=== PATIENT | female | born 1950 | race Caucasian/White ===

== ENCOUNTER 2016-07-27 08:30 | Outpatient (CLI) | payer MEDICARE, OTHER | END 2016-07-27 08:31 | disposition home or self-care (01) | DX: Z12.31 Encounter for screening mammogram for malignant neoplasm of breast (principal); Z80.3 Family history of malignant neoplasm of breast ==

== ENCOUNTER 2017-08-10 10:36 | Outpatient (CLI) | payer MEDICARE, OTHER ==
--- NOTE | 2017-08-12 15:34 | Mammography Report ---
BILATERAL SCREENING MAMMOGRAM: 08/10/2017 COMPARISON: Mammogram 07/27/2016. INDICATION: Screening. TECHNIQUE: Bilateral CC and MLO breast views. FINDINGS There are scattered fibroglandular densities. No dominant mass, architectural distortion, or concerning cluster of microcalcifications is seen. IMPRESSION 1. BI-RADS CATEGORY 1, NEGATIVE. 2. RECOMMEND ANNUAL SCREENING MAMMOGRAM. STANDARD QUALIFYING STATEMENTS 1. This examination was reviewed with the aid of Computed-Aided Detection (CAD) . 2. A negative or benign imaging report should not delay biopsy if clinically suspicious findings are present. Consider surgical consultation if warranted. More than 5 % of cancers are not identified by imaging. 3. Dense breasts may obscure an underlying neoplasm. TD: 08/11/2017 17:38 JOSE
== END 2017-08-10 10:37 | disposition home or self-care (01) ==
LOC: DI 10:36
PROVIDERS: ATTEND Nurse Practitioner Women's Health
DX: Z12.31 Encounter for screening mammogram for malignant neoplasm of breast (principal)
CPT/HCPCS: 77067

== ENCOUNTER 2018-09-09 14:39 | Outpatient (CLI) | payer MEDICARE, OTHER ==
--- NOTE | 2018-09-11 14:56 | Mammography Report ---
Reason: SCREENING MAMMO Procedure Date: 09/09/2018 Accession Number: [id number] / [id number] Procedure: [facility]YNN - Screening Mammo w/Korey CPT Code: FULL RESULT: EXAM: Screening Mammo w/Korey DATE: 09/09/2018 3:17 PM CLINICAL HISTORY: Screening examination. History of nulliparity. Family history of breast cancer in a sister at age 65. TECHNIQUE: (B) - Bilateral CC and MLO views were obtained. A right laterally exaggerated CC views obtained. COMPARISON: 08/10/2017 through 07/16/2013. PARENCHYMAL PATTERN: (A) - The breast(s) demonstrate(s) scattered fibroglandular densities. FINDINGS: There are coarse typically benign calcifications. There are no suspicious masses, calcifications, or areas of distortion. IMPRESSION: Benign findings. BI-RADS category 2. RECOMMENDATION: (ANNUAL) - Recommend routine annual screening mammography. BI-RADS CATEGORY: (2) - Benign Findings. STANDARD QUALIFYING STATEMENTS: 1. This examination was not reviewed with the aid of Computer-Aided Detection (CAD). 2. A negative or benign imaging report should not preclude biopsy if clinically suspicious findings are present. 3. Dense breasts may obscure an underlying neoplasm. 4. This examination was reviewed with the aid of 3D breast imaging (tomosynthesis).
== END 2018-09-09 14:40 | disposition home or self-care (01) ==
LOC: DI 14:39
DX: Z12.31 Encounter for screening mammogram for malignant neoplasm of breast (principal); Z80.3 Family history of malignant neoplasm of breast
CPT/HCPCS: 77063; 77067

== ENCOUNTER 2022-02-17 11:10 | Outpatient (CLI) | payer MEDICARE, OTHER ==
--- NOTE | 2022-02-17 21:51 | XRAY Report ---
PROCEDURE: Hip w/Pelvis 2-3V LT INDICATIONS: PAIN IN LEFT HIP TECHNIQUE: AP pelvis with lateral view(s) of the left hip(s). COMPARISON: None. FINDINGS: Bones: No fractures or dislocations. Pelvic ring appears intact. No suspicious bony lesions. Mode rate bilateral degenerative hip joint space narrowing. No erosions. Degenerative changes are present within the lower lumbar spine. There is narrowing of the sacroiliac joints bilaterally. Soft tissues: The visualized bowel gas pattern is normal. No suspicious soft tissue calcifications. IMPRESSION: Arthritic changes within the lower lumbar spine, SI joints as well as hips bilaterally. Reviewed by: Trang Hall MD on 02/17/2022 9:50 PM PDT Approved by: Trang Hall MD on 02/17/2022 9:50 PM PDT Station ID: [id number]
== END 2022-02-17 11:11 | disposition home or self-care (01) ==
LOC: DI 11:10
PROVIDERS: ATTEND Internal Medicine
DX: M47.816 Spondylosis without myelopathy or radiculopathy, lumbar region (principal); M47.818 Spondylosis without myelopathy or radiculopathy, sacral and sacrococcygeal region; M16.0 Bilateral primary osteoarthritis of hip

== ENCOUNTER 2022-02-25 08:57 | Outpatient (CLI) | payer MEDICARE, OTHER ==
--- NOTE | 2022-02-25 12:05 | MRI Report ---
PROCEDURE: Lumbar Spine W/O INDICATIONS: HIP PAIN TECHNIQUE: Noncontrast sagittal T1 spin echo and T2 fast echo, sagittal STIR, axial T1 and T2 fast spin echo thr ough the lumbar spine. In cases with scoliosis, additional coronal T2 fast spin echo may be performe d. COMPARISON: None. FINDINGS: Image quality: Excellent. Alignment and Curvature: Convex right thoracolumbar scoliosis noted. Bone Marrow: Degenerative endplate chronic changes noted at L3-4 Spinal Cord: Conus medullaris terminates at the L1 level. Visualized cord demonstrates normal signa l and size. Paraspinous Soft Tissues: No paravertebral masses. T12-L1: Normal in appearance. L1-L2: Disc space narrowing with mild hypertrophic facet joints present. Mild central stenosis. Mo derate bilateral foraminal stenosis L2-L3: Disc space narrowing with circumferential disc bulge present. No central stenosis. Mild joseph ateral foraminal stenosis L3-L4: Disc space narrowing with circumferential disc bulge and hypertrophic facet joints results i n mild central stenosis. Moderate right mild left foraminal stenosis L4-L5: Disc space narrowing with hypertrophic facet joints results in mild central stenosis. Modera te right and no left foraminal stenosis. L5-S1: Disc height is preserved. Hypertrophic facet joints present. No central or foraminal stenosi s IMPRESSION: 1. Multilevel degenerative disc disease and arthropathy results in varying degrees of central and for aminal stenosis including moderate foraminal stenosis at L1-2, L3-4 and L4-5 Reviewed by: Gregorio Poe MD on 02/25/2022 11:04 AM [facility] Approved by: Gregorio Poe MD on 02/25/2022 11:04 AM [facility] Station ID: [id number]
== END 2022-02-25 08:58 | disposition home or self-care (01) ==
LOC: DI 08:57
PROVIDERS: ATTEND Internal Medicine
DX: M47.816 Spondylosis without myelopathy or radiculopathy, lumbar region (principal); M47.817 Spondylosis without myelopathy or radiculopathy, lumbosacral region; M51.36 Other intervertebral disc degeneration, lumbar region; M48.061 Spinal stenosis, lumbar region without neurogenic claudication

== ENCOUNTER 2022-02-26 08:00 | Outpatient (CLI) | payer MEDICARE, OTHER ==
[2022-02-26 16:29] LABS: BASOPHILS % (AUTO) 0.6 %; EOSINOPHILS # (AUTO) 0.1 10^3/uL (0.0-0.7); EOSINOPHILS % (AUTO) 1.2 %; HCT - HEMATOCRIT 43.2 % (37.0-47.0); HGB - HEMOGLOBIN 14.1 g/dL (12.0-16.0); LYMPHOCYTES # (AUTO) 1.2 10^3/uL (1.5-3.5); LYMPHOCYTES % (AUTO) 23.6 %; MEAN CORPUSCULAR HEMOGLOBIN 29.9 pg (27.0-31.0); MEAN CORPUSCULAR HGB CONC 32.6 g/dL (32.0-36.0); MEAN CORPUSCULAR VOLUME 91.5 fL (81.0-99.0); MONOCYTES # (AUTO) 0.4 10^3/uL (0.0-1.0); MONOCYTES % (AUTO) 8.3 %; NEUTROPHILS # (AUTO) 3.5 10^3/uL (1.5-6.6); NEUTROPHILS % (AUTO) 66.1 %; PLT - PLATELET COUNT 186 10^3/uL (130-450); RED BLOOD COUNT 4.72 10^6/uL (4.20-5.40); RED CELL DISTRIBUTION WIDTH 13.3 % (12.0-15.0); WHITE BLOOD COUNT 5.2 x10^3/uL (4.8-10.8)
[2022-02-26 16:42] LABS: ALBUMIN 4.2 g/dL (3.2-5.5); ALBUMIN/GLOBULIN RATIO 1.5 (1.0-2.2); ALKALINE PHOSPHATASE 76 IU/L (42-121); ALT ALANINE AMINOTRANSFERASE 15 IU/L (10-60); AST ASPARTATE AMINOTRANSFERASE 17 IU/L (10-42); BILIRUBIN,TOTAL 0.5 mg/dL (0.2-1.0); BUN - BLOOD UREA NITROGEN 15 mg/dL (6-20); CALCIUM 9.2 mg/dL (8.5-10.3); CARBON DIOXIDE - CO2 29 mmol/L (21-32); CHLORIDE 102 mmol/L (101-111); CHOL/HDL RATIO 4.1 (<4.4); CHOLESTEROL 257 mg/dL; CREATININE 0.7 mg/dL (0.4-1.0); GFR - MDRD 82 (>89); GLUCOSE 85 mg/dL (70-100); HDL CHOLESTEROL 62 mg/dL; LDL CHOLESTEROL,CALCULATED 179 mg/dL; LDL/HDL RATIO 2.9 (<4.4); POTASSIUM 3.9 mmol/L (3.5-5.0); SODIUM 140 mmol/L (135-145); TRIGLYCERIDES 80 mg/dL; VLDL CHOLESTEROL 16 mg/dL
[2022-02-26 16:45] LABS: THYROID STIMULATING HORMONE 2.58 uIU/mL (0.34-5.60)
== END 2022-02-26 23:59 | disposition home or self-care (01) ==
LOC: LAB.R 08:00
PROVIDERS: ATTEND Internal Medicine
DX: Z00.00 Encounter for general adult medical examination without abnormal findings (principal); E78.5 Hyperlipidemia, unspecified; M25.552 Pain in left hip; M54.50 Low back pain, unspecified; R20.0 Anesthesia of skin; M46.1 Sacroiliitis, not elsewhere classified; Z13.6 Encounter for screening for cardiovascular disorders; Z79.899 Other long term (current) drug therapy
CPT/HCPCS: 80053; 80061; 82607; 83721; 84443; 85025

== ENCOUNTER 2022-04-05 07:58 | Outpatient (CLI) | payer MEDICARE, OTHER ==
--- NOTE | 2022-04-05 12:18 | DEXA Report ---
PROCEDURE: Dexa Spine and/or Hip INDICATIONS: POST MENOPAUSAL TECHNIQUE: Dual energy x-ray absorptiometry (DXA) was performed on a Cumed System. Regions measur ed are the AP Spine, femoral neck, and if needed forearm. COMPARISON: Prior exam in 2014 is not able to be directly compared secondary to prior Hologic data ac quisition. FINDINGS: Lumbar Spine: Bone Mineral Density 1.072 g/cm/cm,T score -0.9, normal. It is noted there was mild osteopenia on prior exam. Left Hip: Bone Mineral Density 0.815 g/cm/cm,T score -1.5, moderate osteopenia. It is noted normal bone minera l density was noted within this region on prior exam. Left Femoral Neck: Bone Mineral Density 0.749 g/cm/cm, T score -2.1, severe osteopenia. It is noted osteopenia was pres ent on prior exam. (T score greater or equal to -1.0: NORMAL) (T score from -1.1 to -2.4: OSTEOPENIA) (T score less than or equal to -2.5 to: OSTEOPOROSIS) Impression: Osteopenia most severe in the left femoral neck. Patients with diagnosis of osteoporosis or osteopenia should have regular bone mineral density assess ment. For those eligible for Medicare, routine testing is allowed once every 2 years. Testing frequ ency can be increased for patients who have rapidly progressing disease or for those who are receivin g medical therapy to restore bone mass. Reviewed by: Trang Hall MD on 04/05/2022 12:17 PM PST Approved by: Trang Hall MD on 04/05/2022 12:17 PM PST Station ID: [id number]
== END 2022-04-05 07:59 | disposition home or self-care (01) ==
LOC: DI 07:58
PROVIDERS: ATTEND Internal Medicine
DX: M85.89 Other specified disorders of bone density and structure, multiple sites (principal); Z78.0 Asymptomatic menopausal state

== ENCOUNTER 2022-04-28 13:33 | Outpatient (CLI) | payer MEDICARE, OTHER ==
--- NOTE | 2022-04-29 09:36 | XRAY Report ---
PROCEDURE: Foot 3 View LT INDICATIONS: PAIN LEFT FOOT TECHNIQUE: 3 views of the foot were acquired. COMPARISON: None FINDINGS: Bones: No fractures or dislocations. No suspicious bony lesions. Mild degenerative joint disease a t the first tarsometatarsal joint, first metatarsophalangeal joint and in multiple interphalangeal jose ints. Soft tissues: No tibiotalar joint effusion. Achilles tendon appears normal. IMPRESSION: 1. No acute osseous abnormalities. 2. Mild degenerative joint disease. Reviewed by: Ese Verma MD on 04/29/2022 9:35 AM PST Approved by: Ese Verma MD on 04/29/2022 9:35 AM PST Station ID: [id number]
== END 2022-04-28 13:34 | disposition home or self-care (01) ==
LOC: DI 13:33
PROVIDERS: ATTEND Internal Medicine
DX: M19.072 Primary osteoarthritis, left ankle and foot (principal)

== ENCOUNTER 2022-05-08 14:14 | Emergency (ER) | payer MEDICARE, OTHER ==
[2022-05-08 14:34] VITALS: BP 149/80
--- NOTE | 2022-05-08 14:58 | XRAY Report ---
PROCEDURE: Knee 4 View RT INDICATIONS: Trauma TECHNIQUE: 3 views of the right knee(s) were acquired. COMPARISON: None. FINDINGS: Bones: Mildly displaced transversely oriented fracture of the patella. No suspicious bony lesions. Soft tissues: No joint effusion. No suspicious soft tissue calcifications. IMPRESSION: Patellar fracture. Reviewed by: Nomra Mckeon MD on 05/08/2022 1:57 PM [place] Approved by: Norma Mckeon MD on 05/08/2022 1:57 PM [facility] Station ID: [id number]
--- NOTE | 2022-05-08 15:29 | ED Physician Documentation ---
History of Present Illness - Stated complaint Stated Complaint: HEAD INJURY & RT KNEE FALL - Chief complaint Chief Complaint: Trauma Hd/Nk - Additonal information Additional information: 71-year-old female presents to the emergency department for evaluation of acute right knee pain as well as a head injury. Yesterday afternoon she was climbing the stairs to her house carrying heavy packages when she tripped on a step falling forward. She struck her head hard on the door jam and heard a crack. She also struck her right knee directly on the edge of the step. She reports that she was rolled over in pain for quite a while before she can get up. She does have a hematoma on her right forehead and has had pain in her right knee. No history of similar injury. She is not anticoagulated. 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: Other - Present Medications Home Medications: Ambulatory Orders Medication Instructions Recorded Confirmed No Known Home Medications 05/15/14 05/15/14 - Allergies Allergies/Adverse Reactions: Allergies Allergy/AdvReac Type Severity Reaction Status Date / Time No Known Drug Allergies Allergy Verified 05/15/14 20:34 - Social History Does the pt smoke?: No Smoking Status: Never smoker Does the pt drink ETOH?: No Does the pt have substance abuse?: No - Immunizations Immunizations are current?: Yes - POLST Patient has POLST: No PD ED PE NORMAL - General General: Alert and oriented X 3, No acute distress, Well developed/nourished - HEENT HEENT: Atraumatic, Ears normal, Moist mucous membranes, Other (No hemotympanums or raccoon eyes. Large hematoma of the right forehead) - Neck Neck: Supple, no meningeal sign, No adenopathy - Cardiac Cardiac: RRR, No murmur - Respiratory Respiratory: No respiratory distress, Clear bilaterally - Extremities Extremities: Other (Right knee with mild ecchymosis. Normal flexion and extension. Patient is able to fully extend the knee. 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 Eye Opening: Spontaneous Motor: Obeys Commands Verbal: Oriented GCS Score: 15 Results - Vitals Vitals: Vital Signs - 24 hr 05/08/22 14:31 Temperature 37.2 C Heart Rate 68 Respiratory 18 Rate Blood Pressure 149/80 H O2 Saturation 99 Oxygen O2 Source Room air - Rads (name of study) right knee Radiology: Final report received (Mildly displaced transverse right patella fracture.) CT head Radiology: Final report received (No acute intracranial abnormality) PD MEDICAL DECISION MAKING - ED course Complexity details: considered differential, d/w patient, d/w family, d/w risk control consultant (Shashi) ED course: 71 of female presents emergency department for evaluation of acute right knee injury as well as head trauma after fall yesterday when she struck her head on a door and her knee on the step. X-ray of the knee does Confirm a transverse right patellar fracture. I briefly discussed this case with our orthopedic surgeon Dr. Danielle. Because patient is able to fully extend the knee and she has in fact been ambulatory prior to arrival to the ER she can be placed in a knee immobilizer and be allowed weightbearing as tolerated as long as she is wearing the knee immobilizer she should then follow-up with orthopedics. Patient presents is nonfocal however she is requesting a CT of the head as her and partner at the bedside reports that she is quite obstinate and they feel that since she reported a crack in her head she likely could have a skull fracture or subdural hematoma. However subsequent CT of the head was negative. I did offer the patient opiate analgesic for pain control but she declined. She will follow closely with her primary care provider as well as Ortho. She was dispensed a knee immobilizer and a walker here from the emergency department emergent return precautions were discussed. Departure - Departure Disposition: 01 Home, Self Care Clinical Impression: Fall from ground level Right patella fracture Qualifiers: Encounter type: initial encounter Fracture type: closed Fracture morphology: transverse Fracture alignment: nondisplaced Qualified Code(s): S82.034A - Nondisplaced transverse fracture of right patella, initial encounter for closed fracture Traumatic hematoma of forehead Qualifiers: Encounter type: initial encounter Qualified Code(s): S00.83XA - Contusion of other part of head, initial encounter Condition: Stable Record reviewed to determine appropriate education?: Yes Instructions: ED Fx Patella Follow-Up: Gerber Danielle MD [Provider Admit Priv/Credential] - Comments: Linda was seen today in the emergency department because you had a fall on the stairs yesterday at home. The x-ray of the knee shows a transverse minimally displaced right patella or kneecap fracture. Because you are able to fully extend your knee this is likely a fracture that will not need surgical intervention. We have placed you in a knee immobilizer and you are to wear this at all times with the exception of showering. You can be weightbearing as tolerated if using the walker. I do recommend that you take 650 of Tylenol with food 2-3 times a day or alternate 600 mg of ibuprofen also with food 2-3 times a day for pain control. Please discuss this case with your primary care provider on Tuesday. You will need a referral to orthopedics for longer-term evaluation. However it is likely that this will be 6 weeks of a knee immobilizer and then physical therapy moving forward. The CT of your head did not show any bruising or bleeding within it. You may have a mild concussion or headache after striking her head but I do not expect anything more. If you develop uncontrolled vomiting, sudden severe headache, slurred speech or facial droop please return immediately to the ER for a second evaluation.
--- NOTE | 2022-05-08 15:48 | CT Report ---
PROCEDURE: HEAD WO INDICATIONS: glf TECHNIQUE: Noncontrast 4.5 mm thick angled axial sections acquired from the foramen magnum to the vertex. For r adiation dose reduction, the following was used: automated exposure control, adjustment of mA and/or kV according to patient size. COMPARISON: None. FINDINGS: Image quality: Excellent. CSF spaces: Basal cisterns are patent. No extra-axial fluid collections. Ventricles are normal in size and shape. Brain: No midline shift. No intracranial masses or hemorrhage. Dupont-white matter interface is norm al. Skull and face: Calvarium and visualized facial bones are intact, without suspicious lesions. Sinuses: Visualized sinuses and mastoids are clear. IMPRESSION: No acute intracranial abnormality. Reviewed by: Norma Mckeon MD on 05/08/2022 2:46 PM [facility] Approved by: Norma Mckeon MD on 05/08/2022 2:46 PM [facility] Station ID: [id number]
== END 2022-05-08 16:17 | disposition home or self-care (01) ==
LOC: ED 14:14
DX: S82.034A Nondisplaced transverse fracture of right patella, initial encounter for closed fracture (principal); S00.83XA Contusion of other part of head, initial encounter; W10.9XXA Fall (on) (from) unspecified stairs and steps, initial encounter
CPT/HCPCS: 99284

== ENCOUNTER 2022-06-01 08:00 | Outpatient (CLI) | payer MEDICARE, OTHER ==
--- NOTE | 2022-06-01 10:22 | XRAY Report ---
PROCEDURE: Knee 4 View RT INDICATIONS: right patella fracture TECHNIQUE: 4 views of the right knee(s) were acquired. COMPARISON: 05/08/2022 FINDINGS: Bones: Mildly displaced patellar fracture, with lucency slightly less conspicuous than prior imaging . No dislocation. Mild bilateral arthrosis. Soft tissues: Small knee joint effusion is present. IMPRESSION: Healing right patellar fracture. Small effusion. Reviewed by: Dandre Barboza MD on 06/01/2022 10:21 AM [facility] Approved by: Dandre Barboza MD on 06/01/2022 10:21 AM [facility] Station ID: [id number]
== END 2022-06-01 23:59 | disposition home or self-care (01) ==
LOC: DI.WOS 08:00
PROVIDERS: ATTEND Physician Assistant Surgical
DX: S82.001D Unspecified fracture of right patella, subsequent encounter for closed fracture with routine healing (principal); M17.11 Unilateral primary osteoarthritis, right knee; M25.461 Effusion, right knee

== ENCOUNTER 2022-06-28 13:15 | Outpatient (CLI) | payer MEDICARE, OTHER ==
--- NOTE | 2022-06-29 12:10 | XRAY Report ---
PROCEDURE: Knee 3 View RT INDICATIONS: RIGHT KNEE PAIN TECHNIQUE: 3 views of the right knee(s) were acquired. COMPARISON: X-ray knee 06/01/2022 FINDINGS: Bones: There is irregularity of the patella with continued interval sclerosis. Previous patellar fra cture lucency remains present although slightly less visible. No suspicious bony lesions. Soft tissues: No joint effusion. No suspicious soft tissue calcifications. IMPRESSION: Stable alignment and interval healing of previous patellar fracture. Reviewed by: Trang Hall MD on 06/29/2022 12:08 PM PST Approved by: Trang Hall MD on 06/29/2022 12:08 PM PST Station ID: [id number]
== END 2022-06-29 23:59 | disposition home or self-care (01) ==
LOC: DI.WOS 13:15
PROVIDERS: ATTEND Physician Assistant Surgical
DX: S82.301D Unspecified fracture of lower end of right tibia, subsequent encounter for closed fracture with routine healing (principal)

== ENCOUNTER 2022-07-12 15:45 | Outpatient (CLI) | payer MEDICARE, OTHER ==
--- NOTE | 2022-07-12 10:11 | XRAY Report ---
PROCEDURE: Knee 3 View RT INDICATIONS: RIGHT PATELLA FRACTURE TECHNIQUE: 3 views of the right knee(s) were acquired. COMPARISON: 06/28/2022, 06/01/2022 and 05/08/2022. FINDINGS: Bones: There is interval further healing at mid to inferior patella transverse fracture site with ne ar complete bony union. Faint radiolucency is noted along fracture site. No new fracture or dislocati on. Right knee alignment is anatomic. No patella subluxation. Mild tricompartmental osteoarthritis is seen. No suspicious bony lesions. Soft tissues: Small suprapatellar joint effusion is seen. No suspicious soft tissue calcifications. IMPRESSION: Interval further healing at patella fracture site with anatomic patella alignment. Mild tricompartmental osteoarthritis. No new fracture or dislocation. Small joint effusion. Reviewed by: Carlos Manuel Murphy MD on 07/12/2022 10:10 AM PST Approved by: Carlos Manuel Murphy MD on 07/12/2022 10:10 AM PST Station ID: [id number]
== END 2022-07-12 15:49 | disposition home or self-care (01) ==
LOC: DI.WOS 15:45
PROVIDERS: ATTEND Physician Assistant Surgical
DX: S82.031D Displaced transverse fracture of right patella, subsequent encounter for closed fracture with routine healing (principal); M17.11 Unilateral primary osteoarthritis, right knee; M25.461 Effusion, right knee

== ENCOUNTER 2023-02-07 13:17 | Outpatient (CLI) | payer MEDICARE, OTHER ==
--- NOTE | 2023-02-07 16:47 | XRAY Report ---
PROCEDURE: Hip w/Pelvis 2-3V LT INDICATIONS: PX IN LT HIP TECHNIQUE: AP pelvis with lateral view(s) of the left hip(s). COMPARISON: X-ray hip 02/17/2022. FINDINGS: Bones: No fractures or dislocations. No suspicious bony lesions. Moderate to severe bilateral deg enerative hip joint space narrowing. Minimal paratracheal or osteophytes. No erosions. Degenerative c hanges are present within the lower lumbar spine. Soft tissues: No suspicious soft tissue calcifications or masses. IMPRESSION: Stable appearance of bilateral hip and lower lumbar spine arthritic change. Reviewed by: Trang Hall MD on 02/07/2023 4:46 PM PDT Approved by: Trang Hall MD on 02/07/2023 4:46 PM PDT Station ID: [id number]
== END 2023-02-07 13:18 | disposition home or self-care (01) ==
LOC: DI 13:17
PROVIDERS: ATTEND Internal Medicine
DX: M16.0 Bilateral primary osteoarthritis of hip (principal); M47.816 Spondylosis without myelopathy or radiculopathy, lumbar region

== ENCOUNTER 2023-03-22 08:31 | Outpatient (CLI) | payer MEDICARE, OTHER ==
--- NOTE | 2023-03-22 16:08 | MRI Report ---
PROCEDURE: LUMBAR SPINE WO INDICATIONS: SCIATICA TECHNIQUE: Noncontrast sagittal T1 spin echo and T2 fast echo, sagittal STIR, axial T1 and T2 fast spin echo thr ough the lumbar spine. In cases with scoliosis, additional coronal T2 fast spin echo may be performe d. COMPARISON: 02/25/2022 FINDINGS: Image quality: Diagnostic, with note made of motion artifact. Alignment and Curvature: There is mild retrolisthesis seen at the L2-L3 level, with minimal retrolis thesis at L1-L2 and at L3-L4. Mild grade 1 anterolisthesis can be seen L5-S1. No associated pars defe cts are detected. Mild dextroconvex scoliotic curvature is seen. Bone Marrow: Marrow is of normal overall signal. Scattered foci of T1-weighted hyperintensity and T 2-weighted hyperintensity are seen, without increased STIR signal. These foci are attributed to benig n vertebral body hemangiomas. No acute vertebral body compression fractures. Spinal Cord: Conus medullaris terminates at the L1 level. Visualized cord demonstrates normal signa l and size. Paraspinous Soft Tissues: No paravertebral masses. T12-L1: No significant abnormality is seen. L1-L2: Moderate loss of disc height and signal are seen. Reactive marrow endplate changes are see n posteriorly, which are on hypointense on T1-weighted and hyperintense T2-weighted imaging, with a ssociated increased STIR signal. These imaging findings are most consistent with endplate edema (Tricia c type 1 change). These degenerative changes have progressed when compared to the prior examinatio n. L2-L3: Moderate loss of disc height and signal are seen. Reactive marrow endplate changes are see n posteriorly moderate disc bulge is seen, which is eccentric to the left. Mild to moderate facet hyp ertrophy is seen. Moderate bilateral neural foraminal narrowing is seen. Moderate central canal na rrowing is seen. , which are on hypointense on T1-weighted and hyperintense T2-weighted imaging, w ith associated increased STIR signal. These imaging findings are most consistent with endplate edema (Modic type 1 change). These imaging findings are similar to the images of the prior examination. L3-L4: Moderate loss of disc height and signal are seen. Reactive marrow endplate changes are seen , which are hyperintense on T1-weighted and T2-weighted imaging, without significant increased STIR s ignal. These imaging findings are most consistent with fatty metaplasia (Modic type 2 change). Moder ate disc bulge is seen at this level. Moderate facet hypertrophy is seen. At least moderate bilate ral neuroforaminal narrowing can be seen. Mild central canal narrowing is seen. These imaging fin dings are similar to the images of the prior examination. L4-L5: Mild loss of disc height and disc signal are seen. Mild disc bulge is seen. Moderate facet hypertrophy is seen, left worse than right. There is at least moderate bilateral neuroforaminal narro wing seen, right worse than left. Compression is seen upon the exiting nerve roots. Minimal central c anal narrowing is seen. This level appears minimally improved compared to the prior. L5-S1: The disc height is well-preserved. There is loss of disc signal seen. Mild disc bulge is se en. Moderate facet hypertrophy is seen. No significant neural foraminal or central canal narrowing can be seen. These imaging findings are stable compared to the prior examination. IMPRESSION: Multiple levels of lumbar spine degenerative change can be seen, with slight progression of degenerat katya change at L2 compared to the prior examination. There is slight interval improvement in the degree of degenerative change at L4-L5. Reviewed by: Omari Powell MD on 03/22/2023 3:07 PM [facility] Approved by: Omari Powell MD on 03/22/2023 3:07 PM [facility] Station ID: [id number]
== END 2023-03-22 08:32 | disposition home or self-care (01) ==
LOC: DI 08:31
PROVIDERS: ATTEND Internal Medicine
DX: M54.31 Sciatica, right side (principal); M47.816 Spondylosis without myelopathy or radiculopathy, lumbar region

== ENCOUNTER 2023-07-04 17:15 | Outpatient (CLI) | payer MEDICARE, OTHER ==
--- NOTE | 2023-07-04 17:32 | XRAY Report ---
PROCEDURE: Chest 2V INDICATIONS: ACUTE COUGH TECHNIQUE: 2 views of the chest were acquired. COMPARISON: None. FINDINGS: Surgical changes and devices: None. Lungs and pleura: No pleural effusions or pneumothorax. Lungs are clear. Mediastinum: Mediastinal contours appear normal. Heart size is normal. Bones and chest wall: No suspicious bony lesions. Overlying soft tissues appear unremarkable. IMPRESSION: No acute cardiopulmonary process. Reviewed by: Rolando Elam MD on 07/04/2023 5:31 PM PST Approved by: Rolando Elam MD on 07/04/2023 5:31 PM PST Station ID: [id number]
== END 2023-07-04 17:16 | disposition home or self-care (01) ==
LOC: DI 17:15
PROVIDERS: ATTEND Internal Medicine
DX: R05.1 Acute cough (principal)

== ENCOUNTER 2023-12-15 08:36 | Outpatient (CLI) | payer MEDICARE, OTHER ==
--- NOTE | 2023-12-16 09:26 | Ultrasound Report ---
LIMITED ULTRASOUND OF LEFT BREAST: 12/15/2023 CLINICAL: Intermittent pain in bilateral breasts. Comparison is made to exams dated: 12/15/2023 ultrasound, 12/15/2023 mammogram - [facility], 07/29/2023 mammogram, 07/07/2022 mammogram, 07/02/2021 mammogram, and 06/17/2020 mammogram - [facility]. Color flow ultrasound of the left breast retroareolar was performed. Dupont scale images of the real- time examination were reviewed. No significant abnormalities were seen sonographically in the left breast. IMPRESSION: NEGATIVE There is no sonographic evidence of malignancy. There is no abnormality seen in the left breast to correspond with the nipple abnormality, however, c linical correlation and clinical followup are recommended. Return to annual mammogram screening schedule is recommended. This exam was interpreted at Station ID: [id number]. Electronically Signed By: Dandre Barboza M.D. lc/:12/15/2023 09:58:53 Ultrasound BI-RADS: 1 Negative BI-RADS CATEGORY: (1) - 1 Mammogram [id number] return to screening LATERALITY: (B)
--- NOTE | 2023-12-16 09:26 | Ultrasound Report ---
LIMITED ULTRASOUND OF RIGHT BREAST: 12/15/2023 CLINICAL: Intermittent pain in bilateral breasts. Comparison is made to exams dated: 12/15/2023 mammogram - [facility], 07/29/2023 mamm ogram, 07/07/2022 mammogram, 07/02/2021 mammogram, 06/17/[address] - [facility], and 09/09/2018 hakan mogram - [facility]. Color flow ultrasound of the right breast retroareolar was performed. Dupont scale images of the real- time examination were reviewed. No significant abnormalities were seen sonographically in the right breast. IMPRESSION: NEGATIVE There is no sonographic evidence of malignancy. There is no abnormality seen in the right breast to correspond with the nipple abnormality, however, clinical correlation and clinical followup are recommended. Return to annual mammogram screening schedule is recommended. This exam was interpreted at Station ID: [id number]. Electronically Signed By: Dandre Barboza M.D. lc/:12/15/2023 09:58:24 letter sent: No_Letter Ultrasound BI-RADS: 1 Negative BI-RADS CATEGORY: (1) - 1 Mammogram [id number] return to screening LATERALITY: (B)
--- NOTE | 2023-12-16 09:26 | Mammography Report ---
BILATERAL DIGITAL DIAGNOSTIC MAMMOGRAM 3D/2D WITH SPOT COMPRESSION: 12/15/2023 CLINICAL: Bilateral nipple pain. Comparison is made to exams dated: 07/29/2023 mammogram, 07/07/2022 mammogram, 07/02/2021 mammogram, 2020 mammogram - [facility], 09/09/2018 mammogram, and 08/10/2017 mammogram - [facility]. There are scattered areas of fibroglandular density in both breasts (category b / 25%-50% glandular t issue). No significant masses, calcifications, or other findings are seen in either breast. IMPRESSION: INCOMPLETE: NEEDS ADDITIONAL IMAGING EVALUATION There is no abnormality seen in either breast to correspond with the nipple abnormality, however, ult rasound is recommended. Based on the Tyrer Cuzick model (a risk assessment model) the patient's lifetime risk is 8.6% and her 10 year risk is 8.6%. According to the ACR, ACS, and NCCN guidelines, an annual breast MRI exam kasia g with mammogram is recommended if the patient's lifetime risk is 20% or greater. This exam was interpreted at Station ID: [id number]. NOTE: For mammograms, a report in lay terms will be sent to the patient. Approximately 15% of breast malignancies will not be visualized mammographically. In the management of a palpable breast mass, a negative mammogram must not discourage biopsy of a clinically suspicious lesion. Electronically Signed By: Dandre Barboza M.D. lc/:12/15/2023 09:57:53 ACR BI-RADS Category 0: Incomplete 3340F PARENCHYMAL PATTERN: (A) - The breast(s) demonstrate(s) scattered fibroglandular densities. BI-RADS CATEGORY: (0) - 0 Ultrasound [id number] Immediate follow-up LATERALITY: (B)
== END 2023-12-15 08:37 | disposition home or self-care (01) ==
LOC: DI 08:36
PROVIDERS: ATTEND Internal Medicine
DX: N64.4 Mastodynia (principal); R92.323 Mammographic fibroglandular density, bilateral breasts